=== PATIENT | male | born 1980 | race Caucasian/White ===

== ENCOUNTER 2018-05-26 14:45 | Emergency (ER) | payer MEDICAID ==
--- NOTE | 2018-05-26 14:47 | EDPHY ---
H & P Time Seen by Provider: 05/26/18 14:46 Constitutional: Initial Vital Signs Temperature (C) 37.5 C 05/26/18 14:55 Heart Rate 88 05/26/18 14:55 Respiratory Rate 16 05/26/18 14:55 Blood Pressure 141/88 H 05/26/18 14:55 O2 Sat (%) 95 05/26/18 14:55 O2 Delivery Mode Room Air Allergies/Adverse Reactions: No Known Allergies Allergy (Unverified 05/26/18 14:54) Home Medications: Medication Instructions Recorded Loratadine 05/26/18 Promethazine HCl [Phenergan 12.5mg 12.5 mg PO Q6-8PRN PRN #7 tablet 05/26/18 tab] Medical Decision Making - Diagnostics Imaging Results: Imaging Impressions Abdomen CT 05/26/18 15:51 Impression: 1. No abdominopelvic inflammatory mass or ascites. 2. Bilateral nephrolithiasis with dominant 0.8 cm stone in the right kidney. No hydronephrosis. 3. Multiloculated cystic lesion in the right kidney incompletely characterized without IV contrast. This may simply represent an atypical conglomerate of cysts , however further evaluation with ultrasound or three-phase CT scan of the abdomen is recommended. 4. Moderate colonic diverticulosis without evidence of diverticulitis. Domenico Garza was notified of these findings by telephone at 4:51 PM on 2017 Imaging: Discussed imaging studies w/ human factors scientist Radiologist, I viewed and interpreted images myself ED Course/Re-evaluation: CHIEF COMPLAINT: Abdominal pain, V/D HISTORY OF PRESENT ILLNESS: The patient is a 38 y/o male arriving via EMS with his from urgent care complaining of lower crampy abdominal pain, diarrhea, and vomiting onset around 08:00 this morning, about 7 hours ago. He reports seven loose stools this morning. He tried to take Imodium, but subsequently vomited this up and has had several additional episodes of vomiting whenever he tries to drink water. He went to urgent care this afternoon where he received two doses of Zofran, one dose of Benadryl, one dose of Toradol, and IV fluids. He had no significant improvement and was unable to eat a cracker so he was transferred to the ED vis EMS. He received an additional dose of Zofran en route. No fever, chest pain, dyspnea, recent illness or ill contacts. REVIEW OF SYSTEMS: A comprehensive 10 system review of systems is otherwise negative aside from elements mentioned in the history of present illness and medical decision making. PHYSICAL EXAM: HR, BP, O2 Sat, RR. Temp noted General Appearance: Alert, well hydrated, appropriate, and non-toxic appearing. Head: Atraumatic without scalp tenderness or obvious injury Eyes: Pupils equal, round, reactive to light and accommodation, EOMI, no trauma , no injection. Nose: Atraumatic, no rhinorrhea, clear. Throat: There is no erythema or exudates, no lesions, normal tonsils, mucus membranes moist. Neck: Supple, nontender, no lymphadenopathy. Respiratory: No retractions, no distress, no wheezes, and no accessory muscle use. Lungs are clear to auscultation bilaterally. Cardiovascular: Regular rate and rhythm, no murmurs, rubs, or gallops. Good capillary refill all extremities. Gastrointestinal: Abdomen is soft, mild lower abdominal tenderness, non- distended, no masses, no rebound, no guarding, no peritoneal signs. Musculoskeletal: Normal active ROM of all extremities, atraumatic. Neurological: Alert, appropriate, and interactive. The patient has non-focal cranial nerves, motor, sensory, and cerebellar exam. Skin: No rashes, good turgor, no nodules on palpation. Past medical history: Denies Past surgical history: Appendectomy Family history: Noncontributory Social history: at bedside. Nonsmoker. Visiting from [facility] DIAGNOSTICS/PROCEDURES/CRITICAL CARE TIME: Abdominal CT: nothing acute DIFFERENTIAL DIAGNOSIS: The differential diagnosis for the patient's symptoms included but was not limited to gastroenteritis, appendicitis, cholecystitis, hernias, testicular torsion, gastritis, and urinary tract infection. MEDICAL DECISION MAKING: This is a 38 y/o male who presents with a 7-hour history of abdominal pain, vomiting, and diarrhea. He has mild lower abdominal tenderness on exam. Suspect gastroenteritis. Plan for IV, labs, and symptomatic treatment. 10mg IV Reglan and 1L IV NS ordered. Labs unremarkable. 1549: Reassessed patient. He has not improved and has been unable to keep down fluids. Recommended abdominal CT to rule out inflammatory disease or other concerning process. Patient continues to be nauseated. 12.5mg IV Phenergan ordered. 1649: Reassessed patient and discussed findings. He is continued to have diarrhea and complains of abdominal cramping. 0.5mg IV Dilaudid ordered. Reassessed patient. He is feeling significantly better and is ready for discharge home. Script for Phenergan provided. Standard care and follow up instructions given and return precautions discussed. - Data Points Laboratory Results: 05/26/18 15:01 POC Hgb 15.6 gm/dL gm/dL (13.7-17.5) POC Hct 46 % % (40-51) POC Sodium 144 mEq/L mEq/L (135-145) POC Potassium 4.2 mEq/L mEq/L (3.3-5.0) POC Chloride 107 mEq/L mEq/L (97-110) POC BUN 16 mg/dL mg/dL (7-23) POC Creatinine 1.2 mg/dL mg/dL (0.7-1.3) POC Glucose 105 mg/dL H mg/dL (70-100) Medications Given: Discontinued Medications Hydromorphone HCl (Dilaudid) 0.5 mg IVP EDNOW ONE Stop: 05/26/18 16:54 Last Admin: 05/26/18 17:08 Dose: 0.5 mg Sodium Chloride (Ns) 1,000 mls @ 0 mls/hr IV EDNOW ONE; Wide Open PRN Reason: Protocol Stop: 05/26/18 15:51 Last Admin: 05/26/18 16:32 Dose: 1,000 mls Metoclopramide HCl (Reglan Injection) 10 mg IVP EDNOW ONE Stop: 05/26/18 14:55 Last Admin: 05/26/18 15:05 Dose: 10 mg Promethazine HCl (Phenergan) 12.5 mg IVP ONCE ONE Stop: 05/26/18 16:44 Last Admin: 05/26/18 16:50 Dose: 12.5 mg Point of Care Test Results: Chemistry 05/26/18 15:01 POC Sodium 144 mEq/L mEq/L (135-145) POC Potassium 4.2 mEq/L mEq/L (3.3-5.0) POC Chloride 107 mEq/L mEq/L (97-110) POC BUN 16 mg/dL mg/dL (7-23) POC Creatinine 1.2 mg/dL mg/dL (0.7-1.3) POC Glucose 105 mg/dL H mg/dL (70-100) ISTAT H&H 05/26/18 15:01 POC Hgb 15.6 gm/dL gm/dL (13.7-17.5) POC Hct 46 % % (40-51) Departure - Departure Disposition: Home, Routine, Self-Care Clinical Impression: Gastroenteritis Condition: Good Instructions: Gastroenteritis (ED) Additional Instructions: Take Phenergan as directed as needed for nausea and vomiting. Follow up with your primary care provider for unimproved symptoms over the next few days. Practice good hand hygiene as you are likely infectious even for several days after symptoms have resolved. Referrals: Marcellus Hartman MD [Medical Doctor] - As per Instructions Prescriptions: Promethazine HCl [Phenergan 12.5mg tab] 12.5 mg PO Q6-8PRN PRN #7 tablet PRN Reason: Nausea/Vomiting, Use 1st Report Scribed for: Domenico Garza Report Scribed by: Kalani Real Date of Report: 05/26/18 Time of Report: 14:53
[2018-05-26] MEDS ORDERED: METOCLOPRAMIDE 10 MG/2 ML VIAL IVP ONE (14:54)
[2018-05-26] MEDS ORDERED: NS 1,000 ML IV ONE (15:50)
[2018-05-26] MEDS ORDERED: IOPAMIDOL (ISOVUE-300) 100 ML BTL ONE (15:56)
[2018-05-26] MEDS ORDERED: PROMETHAZINE HCL 25 MG/ML INJ IVP ONE (16:43)
[2018-05-26] MEDS ORDERED: HYDROmorphONE/DILAUDID 2 MG/ML INJ IVP ONE (16:53)
[2018-05-26 17:58] VITALS: BP 118/79
== END 2018-05-26 18:55 | disposition home or self-care (01) ==
DX: K52.9 Noninfective gastroenteritis and colitis, unspecified (principal)
CPT/HCPCS: 82435-PO; 82565-PO; 82947-PO; 84132-PO; 84295-PO; 84520-PO; 85014-PO; 96374; J1170; J2550; J2765; Q9967